=== PATIENT | female | born 1980 | race African-American/Black ===

== ENCOUNTER 2016-08-15 | Emergency (ER) | payer MEDICARE, MEDICAID ==
[~2016-08-15] VITALS: Ht 167.6 cm; Wt 108.9 kg
[~2016-08-15] MED LIST: ALBUTEROL SULF8.5 GM INH; AMLODIPINE BESYL5 MG ORAL; CYCLOBENZAPRINE10 MG ORAL; IBUPROFEN600 MG ORAL; IMITREX50 MG ORAL; PREDNISONE20 MG ORAL; RANITIDINE HCL150 MG ORAL; XANAX0.5 MG ORAL
[2016-08-15] MEDS ORDERED: HYDROmorphone 1mg/ml Carpuject IVP ONE (00:30)
[2016-08-15] MEDS ORDERED: Ketorolac 30mg Inj IV ONE (00:30)
[2016-08-15 00:48] LABS: APPEARANCE,URINE CLEAR; KETONES,URINE NEGATIVE (NEGATIVE); LEUKOCYTE ESTERASE ,URINE 1+ (NEGATIVE); NITRITE,URINE NEGATIVE (NEGATIVE); PH,URINE 5 (4.5-8.0); PROTEIN,URINE 1+ (NEGATIVE); UROBILINOGEN,URINE NORMAL MG/DL (0.0-1.0)
[2016-08-15 01:02] LABS: BACTERIA,URINE FEW /HPF; SQUAMOUS EPITHELIAL CELL,UR MANY /LPF (NONE/OCC); WBC,URINE 0-2 /HPF (0 - 2)
[2016-08-15 01:03] LABS: MUCUS,URINE MODERATE /LPF (NONE/OCC)
[2016-08-15 01:30] VITALS: BP 117/82
[2016-08-15] MEDS ORDERED: IBUPROFEN600 MG ORAL (01:53)
[2016-08-15] MEDS ORDERED: HYDROCODON-ACE1 EA15 ORAL (01:53)
--- NOTE | 2016-08-15 01:53 | Emergency Room Report ---
History of Present Illness General Chief Complaint: Back Pain-No Injury Source: Patient Present Illness HPI Is a 36-year-old female with history of migraine. She present with chief complaint of back pain. Onset for the last couple days. Described it worse he looked left lower. Sharp and throbbing in nature. Worse the last couple hours. Been taking [id number] medicine for it. Never had this problem before. No urinary complaint. No anesthesia. No incontinence of bowel or urine. Pain is 10 out of 10. She works as a freight trucker. Sometime when she stood back up to fruit or nut picker her load it can be jarring in nature. Allergies: Coded Allergies: No Known Allergies (Unverified , 03/08/13) Patient History Past Medical History: see triage record, old chart reviewed Past Surgical History: other Pertinent Family History: none Social History: Denies: smoking Last Menstrual Period: August 02, 2016 Now: No Immunizations: other Reviewed Nursing Documentation: PMH: Agreed, PSxH: Agreed Nursing Documentation-PMH Hx Hypertension: Yes Hx Asthma: Yes Hx Cancer: No Hx Gastrointestinal Problems: No Hx Neurological Problems: No Review of Systems Eye: Denies: blurred vision, eye pain ENT: Denies: ear pain, nose congestion, throat swelling Respiratory: Denies: cough, shortness of breath Cardiovascular: Denies: chest pain, palpitations Gastrointestinal: Denies: abdominal pain, diarrhea, nausea, vomiting Musculoskeletal: Reports: back pain, Denies: joint pain Skin: Denies: rash Neurological: Denies: headache, numbness Endocrine: Denies: increased thirst, increased urine Hematologic/Lymphatic: Denies: easy bruising All Other Systems: negative except mentioned in HPI Physical Exam Vital Signs Date Time Temp Pulse Resp B/P Pulse Ox O2 Delivery O2 Flow Rate FiO2 08/15/16 00:05 97.9 76 16 130/88 98 Room Air vitals normal Sp02 EP Interpretation: reviewed, normal General Appearance: well appearing, no apparent distress, alert Head: normocephalic, atraumatic Eyes: bilateral eye EOMI, bilateral eye PERRL ENT: hearing grossly normal, normal pharynx Neck: full range of motion, supple, no meningismus Respiratory: chest non-tender, lungs clear, normal breath sounds Cardiovascular #1: regular rate, rhythm, no murmur Gastrointestinal: normal bowel sounds, non tender, no mass, no organomegaly, no bruit, non-distended Musculoskeletal: gait/station normal, normal range of motion, tender - Tender to palpation over the left lower back. No anesthesia. No step-off. Psychiatric: mood/affect normal Skin: warm/dry Medical Decision Making Diagnostic Impression: Primary Impression: Back pain Qualified Codes: M54.5 - Low back pain Additional Impression: Degenerative disc disease, lumbar ER Course She presents with back pain. No evidence of cauda equina syndrome, spinal after abscess, or neoplastic process. We'll discharge home. CT/MRI/US Diagnostic Results CT/MRI/US Diagnostic Results : Imaging Test Ordered: CT Lumbar spine Impression read by radiologist. Degenerative changes. Last Vital Signs Date Time Temp Pulse Resp B/P Pulse Ox O2 Delivery O2 Flow Rate FiO2 08/15/16 01:33 97.8 08/15/16 01:30 66 12 117/82 98 Room Air Status: improved Disposition: HOME, SELF-CARE Condition: Stable Scripts Ibuprofen* (MOTRIN*) 600 Mg Tablet 600 MG ORAL THREE TIMES A DAY, #30 TAB 0 Refills Prov: REFUGIO STEIN M.D. 08/15/16 Hydrocodone/Acetaminophen 5-325* (HYDROCODONE/ACETAMINOPHEN 5-325*) 1 Each Tablet 1 TAB ORAL Q6H Y for For Pain, #30 TAB 0 Refills Prov: REFUGIO STEIN M.D. 08/15/16 Referrals: NOT CHOSEN [facility]/,REFERRING (PCP) Patient Instructions: Back Pain, Adult Additional Instructions: Followup with your Dr. in 7 days. No heavy lifting. Return if symptom worsen. REFUGIO STEIN M.D. Aug 15, 2016 01:53
[2016-08-15 02:02] VITALS: BP 139/84
--- NOTE | 2016-08-17 09:07 | Diagnostic Imaging Report ---
Indication: BK PAIN Technique: CT scan of the lumbar spine performed without intravenous contrast material. Axial, coronal comment sagittal images were generated. Dose: Total Dose Length Product - DLP [address] Dose Index - CTDIvol(s) 47.08 mGy. Findings: L5-S1: The disc is normal. There is some narrowing of the neural foramina bilaterally with some loss of perineural fat.. The facets are normal. The spinal canal is normal in width. The nerve roots are symmetric. L4-L5: The disc is normal. The neural foramina are unremarkable. Some mild spurring on the right facet joint.. The spinal canal is normal in width. The nerve roots are symmetric. L3-L4: The disc is normal. The neural foramina are unremarkable. The facets are normal. The spinal canal is normal in width. The nerve roots are symmetric. L2-L3: The disc is normal. The neural foramina are unremarkable. The facets are normal. The spinal canal is normal in width. The nerve roots are symmetric. L1-L2: The disc is normal. The neural foramina are unremarkable. The facets are normal. The spinal canal is normal in width. The nerve roots are symmetric. Impression: Mild narrowing of the L5-S1 foramina with some loss of perineural fat. Mild degenerative change in the right facet joint at L4-5. Otherwise negative. The above report is concordant with preliminary reading by [facility] . The CT scanner at [facility] is accredited by the [employer] and the scans are performed using protocols designed to limit radiation exposure to as low as reasonably achievable to attain images of sufficient resolution adequate for diagnostic evaluation.
== END 2016-08-15 02:05 | disposition home or self-care (01) ==
LOC: EMR 00:43
DX: M51.36 Other intervertebral disc degeneration, lumbar region (principal); M54.5 Low back pain; I10 Essential (primary) hypertension; J45.909 Unspecified asthma, uncomplicated
CPT/HCPCS: 72131; 81003; 81025; 96374; 96375; 99284; J1170; J1885; J2405

== ENCOUNTER 2016-12-26 07:25 | Emergency (ER) | payer OTHER ==
[~2016-12-26] VITALS: Ht 170.2 cm; Wt 111.6 kg
[~2016-12-26 07:25] MED LIST changes: +HYDROCODON-ACE1 EA15 ORAL
[2016-12-26 07:30] VITALS: BP 131/89
[2016-12-26] MEDS ORDERED: IMITREX50 MG ORAL (08:02)
[2016-12-26] MEDS ORDERED: BENADRYL25 M3 PO (08:57)
[2016-12-26] MEDS ORDERED: REGLAN10 MG ORAL (08:57)
--- NOTE | 2016-12-26 08:59 | Emergency Room Report ---
History of Present Illness General Chief Complaint: Headache Source: Patient Present Illness HPI [id number] with migraine headache for 2 days. Left side, pulsatile, associated with nausea, 8/10, feels like typical migraine, worse with light. Took ibuprofen and imitrex without much improvement Denies fever/chills, neck pain/stiffness, sick contacts Allergies: Coded Allergies: No Known Allergies (Unverified , 03/08/13) Patient History Past Medical History: migraines Past Surgical History: none Pertinent Family History: none Social History: Denies: smoking, alcohol use, drug use Last Menstrual Period: 12/20/16 Now: No Immunizations: UTD Reviewed Nursing Documentation: PMH: Agreed, PSxH: Agreed Nursing Documentation-PMH Hx Hypertension: Yes Hx Asthma: Yes Hx Cancer: No Hx Gastrointestinal Problems: No Hx Neurological Problems: No Review of Systems All Other Systems: negative except mentioned in HPI Physical Exam Vital Signs Date Time Temp Pulse Resp B/P (MAP) Pulse Ox O2 Delivery O2 Flow Rate FiO2 12/26/16 07:30 97.5 79 15 131/89 98 Room Air Sp02 EP Interpretation: reviewed, normal General Appearance: normal inspection, well appearing, no apparent distress, alert, GCS 15, non-toxic Head: normocephalic, atraumatic Eyes: bilateral eye PERRL, bilateral eye EOMI ENT: normal ENT inspection, hearing grossly normal, normal voice Neck: normal inspection, full range of motion, supple, thyroid normal, no meningismus, no bony tend Respiratory: normal inspection, lungs clear, normal breath sounds, no respiratory distress, no retraction, no wheezing Cardiovascular #1: regular rate, rhythm, no edema Gastrointestinal: normal inspection, normal bowel sounds, non tender, soft, no guarding, no hernia Genitourinary: no CVA tenderness Musculoskeletal: normal inspection, back normal, normal range of motion, Genie' s Sign negative Neurologic: normal inspection, alert, oriented x3, responsive, music worker III-XII nml as tested, motor strength/tone normal, speech normal Psychiatric: normal inspection, judgement/insight normal, mood/affect normal Skin: normal inspection, normal color, no rash Medical Decision Making Diagnostic Impression: Primary Impression: Headache Qualified Codes: R51 - Headache Additional Impression: Migraine headache Qualified Codes: G43.009 - Migraine without aura, not intractable, without status migrainosus ER Course VSS. Afebrile. No focal neuro deficits No meningismus Improved with IV reglan/benadryl, IVF Low suspicion for meningitis, SAH given 2 days duration, no neuro deficits, not intractable, no fever/chills, no meningismus Rx Reglan/benadryl F/up with PMD/neurologist for referral Last Vital Signs Date Time Temp Pulse Resp B/P (MAP) Pulse Ox O2 Delivery O2 Flow Rate FiO2 12/26/16 07:30 97.5 79 15 131/89 98 Room Air Status: improved Disposition: HOME, SELF-CARE Condition: Improved Scripts Diphenhydramine HCl (Benadryl) 25 Mg Capsule 25 MG PO BID for 7 Days, #14 CAP Prov: DARIA SIDDIQI M.D. 12/26/16 Metoclopramide Hcl* (REGLAN*) 10 Mg Tablet 10 MG ORAL BID for 7 Days, #14 TAB Prov: DARIA SIDDIQI M.D. 12/26/16 Patient Instructions: Migraine Headache Additional Instructions: - You can take benadryl with reglan twice a day for continued migraines - Follow up with your doctor/neurologist if migraines are not responding to imitrex DARIA SIDDIQI M.D. Dec 26, 2016 08:59
[2016-12-26] MEDS ORDERED: DiphenhydrAMINE 50mg/ml Inj IVP ONE (09:00)
[2016-12-26] MEDS ORDERED: Metoclopramide 10mg/2ml Inj IVP ONE (09:00)
[2016-12-26] MEDS ORDERED: oxyCODONE HCL/Acetaminophen 5/325mg ORAL ONE (09:00)
[2016-12-26 09:36] VITALS: BP 144/85
[2016-12-26 09:55] VITALS: BP 144/85
== END 2016-12-26 09:55 | disposition home or self-care (01) ==
LOC: EMR 08:58
DX: G43.909 Migraine, unspecified, not intractable, without status migrainosus (principal); I10 Essential (primary) hypertension; J45.909 Unspecified asthma, uncomplicated
CPT/HCPCS: 96361; 96374; 96375; 99284; J1200; J2765

== ENCOUNTER 2017-04-08 18:51 | Emergency (ER) | payer OTHER ==
[~2017-04-08] VITALS: Ht 167.6 cm; Wt 108.9 kg
[~2017-04-08 18:51] MED LIST changes: +BENADRYL25 M3 PO; +REGLAN10 MG ORAL
[2017-04-08 19:41] LABS: APPEARANCE,URINE CLEAR; KETONES,URINE NEGATIVE (NEGATIVE); LEUKOCYTE ESTERASE ,URINE NEGATIVE (NEGATIVE); NITRITE,URINE NEGATIVE (NEGATIVE); PH,URINE 5 (4.5-8.0); PROTEIN,URINE 1+ (NEGATIVE); UROBILINOGEN,URINE 1 MG/DL (0.0-1.0)
[2017-04-08 19:49] LABS: BACTERIA,URINE OCCASIONAL /HPF; RBC,URINE 0-2 /HPF (0 - 2); SQUAMOUS EPITHELIAL CELL,UR FEW /LPF (NONE/OCC); WBC,URINE 0-2 /HPF (0 - 2)
[2017-04-08] MEDS ORDERED: Morphine Sulfate 4mg/ml Inj IM ONE (20:00)
[2017-04-08 20:04] VITALS: BP 116/76
[2017-04-08] MEDS ORDERED: NORCO 5-325 TA1 EAC1 ORAL (20:26)
[2017-04-08 20:54] VITALS: BP 120/78
--- NOTE | 2017-04-08 22:01 | Emergency Room Report ---
History of Present Illness General Chief Complaint: Back Pain-No Injury Source: Patient Present Illness [facility] The patient is a 36-year-old female presenting for back pain which began today. Pain is a 10 out of 10 sharp sensation to the left lower back. Worse with movement such as twisting and bending. She denies any known injury to the area. She states that it feels like a spasm. She states that she has had back spasms before and this feels the same. She has used Motrin at home which has not been helping. She denies any other symptoms including nausea, vomiting, fever, chills, abdominal pain, urinary incontinence, dysuria Allergies: Coded Allergies: No Known Allergies (Unverified , 03/08/13) Patient History Past Medical History: see triage record Pertinent Family History: none Last Menstrual Period: 04/07/17 Now: No : 2 Para: 2 Reviewed Nursing Documentation: PMH: Agreed, PSxH: Agreed Nursing Documentation-PMH Hx Hypertension: Yes Hx Asthma: Yes Hx Cancer: No Hx Gastrointestinal Problems: No Hx Neurological Problems: No Review of Systems All Other Systems: negative except mentioned in HPI Physical Exam Vital Signs Date Time Temp Pulse Resp B/P (MAP) Pulse Ox O2 Delivery O2 Flow Rate FiO2 04/08/17 18:55 97.5 78 14 116/76 99 Room Air Sp02 EP Interpretation: reviewed, normal General Appearance: no apparent distress, alert, GCS 15, non-toxic Head: normocephalic, atraumatic Eyes: bilateral eye normal inspection, bilateral eye PERRL ENT: hearing grossly normal, normal pharynx, no angioedema, normal voice Neck: full range of motion, supple/symm/no masses Respiratory: chest non-tender, lungs clear, normal breath sounds, speaking full sentences Gastrointestinal: normal bowel sounds, non tender, soft, non-distended, no guarding, no rebound Genitourinary: normal inspection, no CVA tenderness Musculoskeletal: back normal, gait/station normal, normal range of motion, non- tender, tender - L Lumbar paraspinal muscles Neurologic: alert, oriented x3, responsive, motor strength/tone normal, sensory intact, speech normal Psychiatric: judgement/insight normal, memory normal, mood/affect normal, no suicidal/homicidal ideation Skin: normal color, no rash, warm/dry, well hydrated Medical Decision Making PA Attestation Dr. Ennis is my supervising physician. Patient management was discussed with my supervising physician Diagnostic Impression: Primary Impression: Back pain Qualified Codes: M54.5 - Low back pain ER Course The patient is a 36-year-old female presenting for back pain which began today Ddx considered include but not limited to lumbar strain, muscle spasm, degenerative disease, epidural abscess, cauda equina, chronic pain, narcotic dependency. PE: Vitals WNL. NAD Abdomen is soft and nontender Lungs are clear to auscultation bilaterally There is tenderness to palpation over the left lumbar paraspinal muscles. Normal gait Urinalysis is unremarkable The patient is given IM morphine and is feeling better. She appears more relaxed and range of motion has increased. She will be discharged home with pain medication and will follow up with primary doctor. ER precautions given Laboratory Tests Test 04/08/17 17:04 Urine Color Yellow Urine Appearance Clear Urine pH 5 (4.5-8.0) Urine Specific [place] 1.020 (1.005-1.035) Urine Protein 1+ (NEGATIVE) H Urine Glucose (UA) Negative (NEGATIVE) Urine Ketones Negative (NEGATIVE) Urine Occult Blood 3+ (NEGATIVE) H Urine Nitrite Negative (NEGATIVE) Urine Bilirubin Negative (NEGATIVE) Urine Urobilinogen 1 MG/DL (0.0-1.0) H Urine Leukocyte Esterase Negative (NEGATIVE) Urine RBC 0-2 /HPF (0 - 2) Urine WBC 0-2 /HPF (0 - 2) Urine Squamous Epithelial Cells Few /LPF (NONE/OCC) Urine Bacteria Occasional /HPF (NONE) Urine HCG, Qualitative Negative Lab Results Impression unremarkable Last Vital Signs Date Time Temp Pulse Resp B/P (MAP) Pulse Ox O2 Delivery O2 Flow Rate FiO2 04/08/17 20:54 97.5 72 16 120/78 99 Room Air Status: improved Disposition: HOME, SELF-CARE Condition: Improved Scripts Hydrocodone Bit/Acetaminophen 5-325* (NORCO 5-325 TABLET*) 1 Each Tablet 1 TAB ORAL Q6HR Y for For Pain, #10 TAB Prov: RICHAR GARCIA 04/08/17 Patient Instructions: Back Pain, Adult Additional Instructions: I discussed my findings with the patient. All questions and concerns have been answered. Treatment and medication compliance have been addressed. I advised the patient that they need to follow up with PMD in 3-5 days. Return to ED if symptoms worsen, new symptoms arise, or if needed for any reason. Patient verbalized understanding of discharge instructions. RICHAR GARCIA Apr 08, 2017 22:01
== END 2017-04-08 21:06 | disposition home or self-care (01) ==
LOC: EMR 19:10
DX: M54.5 Low back pain (principal); I10 Essential (primary) hypertension; J45.909 Unspecified asthma, uncomplicated
CPT/HCPCS: 81003; 81025; 96372; 99283; J2270

== ENCOUNTER 2017-04-17 02:42 | Emergency (ER) | payer OTHER ==
[~2017-04-17] VITALS: Ht 167.6 cm; Wt 108.9 kg
[~2017-04-17 02:42] MED LIST changes: +NORCO 5-325 TA1 EAC1 ORAL
[2017-04-17] MEDS ORDERED: Ketorolac 30mg Inj IV ONE (03:15)
[2017-04-17] MEDS ORDERED: Aspirin Baby 81mg ORAL ONE (03:15)
--- NOTE | 2017-04-17 03:15 | Emergency Room Report ---
History of Present Illness General Chief Complaint: Chest Pain Source: Patient Present Illness HPI Is a 36-year-old female with history hypertension. She presents with chief complaint of chest pain. Is left-sided. Onset since 2 PM. Is no pain with sharp and mentally. Pain is 10 out of 10. No radiation. Also with back pain. No fever chills but no exertional component. No diaphoresis. No radiation. Similar pain in the past. Not on control pill. Allergies: Coded Allergies: No Known Allergies (Unverified , 03/08/13) Patient History Past Medical History: see triage record, old chart reviewed, HTN Past Surgical History: other Pertinent Family History: none Social History: Denies: smoking Last Menstrual Period: a week ago Now: No Immunizations: other Reviewed Nursing Documentation: PMH: Agreed, PSxH: Agreed Nursing Documentation-PMH Hx Hypertension: Yes Hx Asthma: Yes Hx Cancer: No Hx Gastrointestinal Problems: No Hx Neurological Problems: No Review of Systems Eye: Denies: eye pain, blurred vision ENT: Denies: ear pain, nose congestion, throat swelling Respiratory: Denies: cough, shortness of breath Cardiovascular: Reports: chest pain, Denies: palpitations Gastrointestinal: Denies: abdominal pain, diarrhea, nausea, vomiting Musculoskeletal: Denies: back pain, joint pain Skin: Denies: rash Neurological: Denies: headache, numbness Endocrine: Denies: increased thirst, increased urine Hematologic/Lymphatic: Denies: easy bruising All Other Systems: negative except mentioned in HPI Physical Exam Vital Signs Date Time Temp Pulse Resp B/P (MAP) Pulse Ox O2 Delivery O2 Flow Rate FiO2 04/17/17 02:47 97.3 77 18 140/83 99 Room Air vitals normal except for mild hypertension Sp02 EP Interpretation: reviewed, normal General Appearance: well appearing, no apparent distress, alert, obese Head: normocephalic, atraumatic Eyes: bilateral eye PERRL, bilateral eye EOMI ENT: hearing grossly normal, normal pharynx Neck: full range of motion, supple, no meningismus Respiratory: chest non-tender, lungs clear, normal breath sounds Cardiovascular #1: regular rate, rhythm, no murmur Gastrointestinal: normal bowel sounds, non tender, no mass, no organomegaly, no bruit, non-distended Musculoskeletal: back normal, gait/station normal, normal range of motion Neurologic: alert, oriented x3 Psychiatric: mood/affect normal Skin: warm/dry Medical Decision Making Diagnostic Impression: Primary Impression: Chest pain Qualified Codes: R07.9 - Chest pain, unspecified ER Course Patient presents with atypical chest pain. Notice of ACS, PE, dissection to name a few. She is better now. We'll discharge home. Troponin negative after 12 hours the pain. EKG normal. EKG Diagnostic Results Rate: normal Rhythm: NSR ST Segments: no acute changes ASA given to the pt in ED: Yes Rhythm Strip Diag. Results Rhythm Strip Time: 03:15 EP Interpretation: yes Rate: 80 Rhythm: NSR, no PVC's, no ectopy Chest X-Ray Diagnostic Results Chest X-Ray Diagnostic Results : Chest X-Ray Ordered: Yes # of Views/Limited/Complete: 1 View Indication: Chest Pain EP Interpretation: Yes Interpretation: no consolidation, no effusion, no pneumothorax, no acute cardiopulmonary disease Impression: No acute disease Electronically Signed by: Iban Ross MD Last Vital Signs Date Time Temp Pulse Resp B/P (MAP) Pulse Ox O2 Delivery O2 Flow Rate FiO2 04/17/17 02:54 77 18 Room Air 04/17/17 02:47 97.3 140/83 99 Status: improved Disposition: HOME, SELF-CARE Condition: Stable Scripts Naproxen* (NAPROSYN*) 500 Mg Tablet 500 MG ORAL TWICE A DAY, #30 TAB Prov: IBAN ROSS M.D. 04/17/17 Patient Instructions: Nonspecific Chest Pain Additional Instructions: Followup with your DrAlondra in 2 to 3 days. Return if worse. IBAN ROSS M.D. Apr 17, 2017 03:15
[2017-04-17 03:29] LABS: APPEARANCE,URINE CLOUDY; BASOPHILS % (AUTO) 1.6 % (0.0-2.0); KETONES,URINE NEGATIVE (NEGATIVE); LEUKOCYTE ESTERASE ,URINE NEGATIVE (NEGATIVE); LYMPHOCYTES % (AUTO) 27.6 % (20.0-45.0); MEAN CORPUSCULAR HGB CONC 32.5 G/DL (32.0-36.0); MEAN CORPUSCULAR VOLUME 96 FL (80-99); MEAN PLATELET VOLUME 7.6 FL (6.5-10.1); MONOCYTES % (AUTO) 7.1 % (1.0-10.0); NEUTROPHILS % (AUTO) 61.7 % (45.0-75.0); NITRITE,URINE NEGATIVE (NEGATIVE); PH,URINE 6 (4.5-8.0); PLATELET COUNT 304 K/UL (150-450); PROTEIN,URINE NEGATIVE (NEGATIVE); RED BLOOD COUNT 4.35 M/UL (4.20-5.40); RED CELL DISTRIBUTION WIDTH 11.9 % (11.6-14.8); UROBILINOGEN,URINE NORMAL MG/DL (0.0-1.0); WHITE BLOOD COUNT 9.1 K/UL (4.8-10.8)
[2017-04-17 03:38] LABS: BACTERIA,URINE FEW /HPF; RBC,URINE 0-2 /HPF (0 - 2); SQUAMOUS EPITHELIAL CELL,UR MODERATE /LPF (NONE/OCC); WBC,URINE 0-2 /HPF (0 - 2)
[2017-04-17 03:40] LABS: ANION GAP 4 mmol/L (5-15); CALCIUM 8.6 MG/DL (8.5-10.1); CARBON DIOXIDE 29 MMOL/L (21-32); CHLORIDE 105 MMOL/L (98-107); CREATININE 0.9 MG/DL (0.55-1.30); GLOMERULAR FILTRATION RATE > 60 mL/min (>60); POTASSIUM 4.4 MMOL/L (3.5-5.1); SODIUM 138 MMOL/L (136-145)
[2017-04-17 03:54] LABS: ALANINE AMINOTRANSFERASE 19 U/L (12-78); ALBUMIN/GLOBULIN RATIO 0.8 (1.0-2.7); ASPARTATE AMINO TRANSFERASE 19 U/L (15-37); CKMB 2.2 NG/ML (0.0-3.6); TOTAL PROTEIN 7.6 G/DL (6.4-8.2)
[2017-04-17 04:58] VITALS: BP 140/83
[2017-04-17] MEDS ORDERED: NAPROSYN500 M1 ORAL (04:58)
--- NOTE | 2017-04-17 12:09 | Diagnostic Imaging Report ---
Indication: Pain Technique: XRAY Chest 1v Comparison: 06/22/2014 Findings: Stable cardiomegaly. Sternal contours are sharp. There is no focal consolidation, pneumothorax or pleural effusion. Osseous structures demonstrate no acute abnormality. Impression: Stable cardiomegaly. No radiographic evidence of acute cardiopulmonary disease.
--- NOTE | 2017-04-18 14:28 | Cardiology Report ---
APPROVED REPORT EKG Measurement Heart [id number] Normal sinus rhythm Possible Left atrial enlargement Borderline ECG
== END 2017-04-17 05:04 | disposition home or self-care (01) ==
LOC: EMR 03:20
DX: R07.9 Chest pain, unspecified (principal); I10 Essential (primary) hypertension; J45.909 Unspecified asthma, uncomplicated
CPT/HCPCS: 36415; 71010; 80053; 80307; 81003; 82550; 82553; 84484; 85025; 93005; 96374; 99284; J1885

== ENCOUNTER 2017-06-04 14:45 | Emergency (ER) | payer OTHER ==
[~2017-06-04] VITALS: Ht 170.2 cm; Wt 108.9 kg
[~2017-06-04 14:45] MED LIST changes: +NAPROSYN500 M1 ORAL
[2017-06-04] MEDS ORDERED: DIOVAN80 MG ORAL (15:00)
--- NOTE | 2017-06-04 15:22 | Emergency Room Report ---
History of Present Illness General Chief Complaint: Skin Rash/Abscess Source: Patient Present Illness HPI 36 yo female presents to ER complaining of herpes rash outbreak on mouth, throat , lower back and vaginal area x3 days. 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 Patient reports pain and pruritis at sites of outbreak. Patient report using OTC treatments for mouth outbreak; states it is "dried out ". 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 Patient reports recent sexual contact 2 weeks ago. Patient reports using contraceptive methods during sex. Patient denies fever, chest pain, SOB. Allergies: Coded Allergies: No Known Allergies (Unverified , 03/08/13) Patient History Past Medical History: see triage record Now: No Immunizations: UTD Reviewed Nursing Documentation: PMH: Agreed, PSxH: Agreed Nursing Documentation-PMH Past Medical History: No History, Except For Hx Hypertension: Yes Hx Asthma: Yes Hx Cancer: No Hx Gastrointestinal Problems: No Hx Neurological Problems: No Review of Systems All Other Systems: negative except mentioned in HPI Physical Exam Vital Signs Date Time Temp Pulse Resp B/P (MAP) Pulse Ox O2 Delivery O2 Flow Rate FiO2 06/04/17 14:53 97.5 74 18 138/87 96 Room Air Sp02 EP Interpretation: reviewed, normal General Appearance: no apparent distress, alert, GCS 15, non-toxic Head: normocephalic, atraumatic Eyes: bilateral eye normal inspection, bilateral eye PERRL ENT: hearing grossly normal, normal pharynx, no angioedema, normal voice, other - left tonsil: 2-3mm ulcer with surrounding erythema Neck: full range of motion, supple/symm/no masses Respiratory: chest non-tender, lungs clear, normal breath sounds, speaking full sentences Cardiovascular #1: regular rate, rhythm, no edema Genitourinary: ext genitalia/vag normal, other - left external vagina: <1cm red elevated lesion, no blanching with pressure, no TTP, no active bleeding, no edmea, no surrounding cellulitis Musculoskeletal: back normal, gait/station normal, normal range of motion, non- tender, calf tenderness Neurologic: alert, oriented x3, responsive, motor strength/tone normal, sensory intact, speech normal Psychiatric: mood/affect normal Skin: no rash, warm/dry, palpation normal, well hydrated, other - right corner of mouth: 2cm lesion, dried pus, no active draining, no bleeding, no vesicles, no blisters; left ear auricle: mild erythema, no edema, no TTP, no active bleeding; lumbar spine: no rash, no erythema, no edema, no excoriations, no open wounds, no ecchymosis Lymphatic: no adenopathy Medical Decision Making PA Attestation Dr. Nino is my supervising Physician whom patient management has been discussed with. Diagnostic Impression: Primary Impression: Herpes ER Course Pt. presents to the ED c/o STI. Ddx considered but are not limited to syphillis, HSV1, HSV2, ezcema Vital signs: are WNL, pt. is afebrile ORDERS: none required at this time, diagnosis is clinical ED INTERVENTIONS: Penicillin G IM Hydroxyzine Viscous Lidocaine ER COURSE Discuss treatment plan with patient. Inform patient that genital lesion possibly could be syphilis, will treat prophylactically. Patient will require further followup with PCP. Patient reports understanding and agreement to treatment plan. Provide patient Rx for Acyclovir Advised to use safe sex practices including but not limited to use of condoms. Instructed patient to follow up with STI clinic and/or PCP for future STI treatment and prevention. Instructed patient to inform partner of need for treatment to prevent future infection. At this time pt. is stable for d/c to home. Will provide printed patient care instructions, and any necessary prescriptions. Care plan and follow up instructions have been discussed with the patient prior to discharge Last Vital Signs Date Time Temp Pulse Resp B/P (MAP) Pulse Ox O2 Delivery O2 Flow Rate FiO2 06/04/17 14:53 97.5 74 18 138/87 96 Room Air Disposition: HOME, SELF-CARE Condition: Stable Scripts Acyclovir* (ACYCLOVIR*) 400 Mg Tablet 400 MG ORAL FIVE TIMES A DAY for 10 Days, #50 TAB Prov: Paco Diaz 06/04/17 Patient Instructions: Genital Herpes Additional Instructions: Followup with primary care provider in 3 -5 days. Take medications as directed. Patient questions asked and answered. ER precautions given, patient instructed to return to ER immediately for any new or worsening of symptoms. Paco Diaz Jun 04, 2017 15:22
[2017-06-04] MEDS ORDERED: Lidocaine 2% Visc 15ml soln ORAL ONE (15:30)
[2017-06-04] MEDS ORDERED: HydrOXYzine tab 25 MG TAB ORAL ONE (15:30)
[2017-06-04] MEDS ORDERED: ACYCLOVIR400 MG ORAL (15:39)
[2017-06-04 15:45] VITALS: BP 138/87
[2017-06-04] MEDS ORDERED: Bicillin LA 2,400,000 units IM ONE (15:45)
[2017-06-04 15:46] VITALS: BP 138/87
== END 2017-06-04 15:46 | disposition home or self-care (01) ==
LOC: EMR 15:28
DX: B00.9 Herpesviral infection, unspecified (principal); I10 Essential (primary) hypertension; J45.909 Unspecified asthma, uncomplicated
CPT/HCPCS: 96372; 99283

== ENCOUNTER 2017-08-13 04:46 | Emergency (ER) | payer OTHER ==
[~2017-08-13] VITALS: Ht 170.2 cm; Wt 108.9 kg
[~2017-08-13 04:46] MED LIST changes: +ACYCLOVIR400 MG ORAL; +DIOVAN80 MG ORAL
[2017-08-13 05:56] LABS: BASOPHILS % (AUTO) 1.5 % (0.0-2.0); EOSINOPHILS % (AUTO) 3.2 % (0.0-3.0); HEMATOCRIT 40.9 % (37.0-47.0); HEMOGLOBIN 13.5 G/DL (12.0-16.0); LYMPHOCYTES % (AUTO) 23.9 % (20.0-45.0); MEAN CORPUSCULAR VOLUME 93 FL (80-99); MONOCYTES % (AUTO) 5.2 % (1.0-10.0); NEUTROPHILS % (AUTO) 66.2 % (45.0-75.0); PLATELET COUNT 279 K/UL (150-450); RED BLOOD COUNT 4.39 M/UL (4.20-5.40); RED CELL DISTRIBUTION WIDTH 11.6 % (11.6-14.8); WHITE BLOOD COUNT 7.4 K/UL (4.8-10.8)
[2017-08-13 06:03] LABS: APPEARANCE,URINE CLEAR; BILIRUBIN, URINE NEGATIVE (NEGATIVE); COLOR,URINE PALE YELLOW; GLUCOSE, URINE (UA) NEGATIVE (NEGATIVE); KETONES,URINE NEGATIVE (NEGATIVE); LEUKOCYTE ESTERASE ,URINE NEGATIVE (NEGATIVE); NITRITE,URINE NEGATIVE (NEGATIVE); PH,URINE 6.5 (4.5-8.0); PROTEIN,URINE NEGATIVE (NEGATIVE); UROBILINOGEN,URINE NORMAL MG/DL (0.0-1.0)
[2017-08-13 06:09] LABS: ANION GAP 5 mmol/L (5-15); BLOOD UREA NITROGEN 11 mg/dL (7-18); CALCIUM 8.5 MG/DL (8.5-10.1); CARBON DIOXIDE 31 MMOL/L (21-32); CHLORIDE 104 MMOL/L (98-107); CREATININE 0.9 MG/DL (0.55-1.30); POTASSIUM 3.8 MMOL/L (3.5-5.1); SODIUM 140 MMOL/L (136-145)
[2017-08-13 06:22] LABS: ALANINE AMINOTRANSFERASE 22 U/L (12-78); ALBUMIN 3.4 G/DL (3.4-5.0); ALBUMIN/GLOBULIN RATIO 0.8 (1.0-2.7); ALKALINE PHOSPHATASE 88 U/L (46-116); ASPARTATE AMINO TRANSFERASE 22 U/L (15-37); BILIRUBIN,TOTAL 0.3 MG/DL (0.2-1.0); CREATINE KINASE 381 U/L (26-308)
--- NOTE | 2017-08-13 06:53 | Emergency Room Report ---
History of Present Illness General Chief Complaint: Pain Source: Patient (Horacio Goddard MD) Present Illness HPI 37-year-old female presents ED for evaluation. States that since yesterday at 11 AM she's been experiencing numbness to the left side of her face and facial droop. Occurred while at work. Was referred to employee health. States that they recommend that she follow-up with PMD because it is not work-related. However they did voice concern for Yt's palsy. Patient was told that she needed clearance before she go back to work today. Still has some numbness on the left side of face. Denies any arm or leg weakness. Notes history of hypertension. States she is compliant with her meds. Denies chest pain or shortness of breath. No other aggravating relieving factors. Denies any other associated symptoms (Horacio Goddard MD) Allergies: Coded Allergies: No Known Allergies (Unverified , 03/08/13) Patient History Past Medical History: HTN, asthma, psych hx Past Surgical History: none Pertinent Family History: none Social History: Denies: smoking, alcohol use, drug use Last Menstrual Period: 08/04/17 Now: No : 2 Para: 2 Immunizations: UTD Reviewed Nursing Documentation: PMH: Agreed; PSxH: Agreed (Horacio Goddard MD) Nursing Documentation-PMH Hx Hypertension: Yes Hx Asthma: Yes Hx Cancer: No Hx Gastrointestinal Problems: No History Of Psychiatric Problem: Yes - anxiety Hx Neurological Problems: No (Horacio Goddard MD) Review of Systems All Other Systems: negative except mentioned in HPI (Horacio Goddard MD) Physical Exam Vital Signs Date Time Temp Pulse Resp B/P (MAP) Pulse Ox O2 Delivery O2 Flow Rate FiO2 08/13/17 04:48 97.5 87 14 147/78 96 Room Air 97.5 Sp02 EP Interpretation: reviewed, normal General Appearance: no apparent distress, alert, GCS 15, non-toxic Head: normocephalic, atraumatic Eyes: bilateral eye normal inspection, bilateral eye PERRL ENT: hearing grossly normal, normal pharynx, no angioedema, normal voice Neck: full range of motion, supple/symm/no masses Respiratory: chest non-tender, lungs clear, normal breath sounds, speaking full sentences Cardiovascular #1: regular rate, rhythm, no edema Cardiovascular #2: 2+ carotid (R), 2+ carotid (L), 2+ radial (R), 2+ radial (L) , 2+ dorsalis pedis (R), 2+ dorsalis pedis (L) Gastrointestinal: normal bowel sounds, non tender, soft, non-distended, no guarding, no rebound Rectal: deferred Genitourinary: normal inspection, no CVA tenderness Musculoskeletal: back normal, gait/station normal, normal range of motion, non- tender Neurologic: alert, oriented x3, responsive, motor strength/tone normal, speech normal, facial droop - minimal on left, sensory deficit - L side of face Psychiatric: judgement/insight normal, memory normal, mood/affect normal, no suicidal/homicidal ideation Reflexes: 3+ bicep (R), 3+ bicep (L), 3+ tricep (R), 3+ tricep (L), 3+ knee (R) , 3+ knee (L) Skin: normal color, no rash, warm/dry, well hydrated Lymphatic: no adenopathy (Horacio Goddard MD) Sp02 EP Interpretation: reviewed, normal General Appearance: well appearing, no apparent distress Head: normocephalic, atraumatic Eyes: bilateral eye PERRL, bilateral eye EOMI ENT: hearing grossly normal, normal pharynx, TMs + canals normal, uvula midline Neck: full range of motion, supple, no meningismus, no bony tend Respiratory: lungs clear, normal breath sounds, no rhonchi, no respiratory distress, no retraction, no accessory muscle use Cardiovascular #1: normal peripheral pulses, regular rate, rhythm, no edema, no gallop, no JVD, no murmur Gastrointestinal: normal bowel sounds, non tender, soft, no mass, no organomegaly, non-distended, no guarding, no hernia, no pulsatile mass, no rebound Genitourinary: no CVA tenderness Musculoskeletal: normal inspection Neurologic: oriented x3, responsive, assistant production manager III-XII nml as tested - No evidence of facial droop, sensory is intact, motor strength/tone normal, sensory intact Psychiatric: mood/affect normal Skin: normal color, no rash, warm/dry, palpation normal Lymphatic: other - Small palpable submental lymph node left submandibular region approximately 1 x 1 cm nontender (Ashley Ochoa DO) Medical Decision Making Diagnostic Impression: Primary Impression: Lymphadenopathy Labs Test 08/13/17 05:50 White Blood Count 7.4 K/UL (4.8-10.8) Red Blood Count 4.39 M/UL (4.20-5.40) Hemoglobin 13.5 G/DL (12.0-16.0) Hematocrit 40.9 % (37.0-47.0) Mean Corpuscular Volume 93 FL (80-99) Mean Corpuscular Hemoglobin 30.8 PG (27.0-31.0) Mean Corpuscular Hemoglobin Concent 33.0 G/DL (32.0-36.0) Red Cell Distribution Width 11.6 % (11.6-14.8) Platelet Count 279 K/UL (150-450) Mean Platelet Volume 7.3 FL (6.5-10.1) Neutrophils (%) (Auto) 66.2 % (45.0-75.0) Lymphocytes (%) (Auto) 23.9 % (20.0-45.0) Monocytes (%) (Auto) 5.2 % (1.0-10.0) Eosinophils (%) (Auto) 3.2 % (0.0-3.0) Basophils (%) (Auto) 1.5 % (0.0-2.0) Urine Color Pale yellow Urine Appearance Clear Urine pH 6.5 (4.5-8.0) Urine Specific [place] 1.015 (1.005-1.035) Urine Protein Negative (NEGATIVE) Urine Glucose (UA) Negative (NEGATIVE) Urine Ketones Negative (NEGATIVE) Urine Occult Blood 3+ (NEGATIVE) Urine Nitrite Negative (NEGATIVE) Urine Bilirubin Negative (NEGATIVE) Urine Urobilinogen Normal MG/DL (0.0-1.0) Urine Leukocyte Esterase Negative (NEGATIVE) Urine RBC 5-10 /HPF (0 - 2) Urine WBC 0-2 /HPF (0 - 2) Urine Squamous Epithelial Cells Moderate /LPF (NONE/OCC) Urine Bacteria Few /HPF (NONE) Urine HCG, Qualitative Negative (NEGATIVE) Sodium Level 140 MMOL/L (136-145) Potassium Level 3.8 MMOL/L (3.5-5.1) Chloride Level 104 MMOL/L (98-107) Carbon Dioxide Level 31 MMOL/L (21-32) Anion Gap 5 mmol/L (5-15) Blood Urea Nitrogen 11 mg/dL (7-18) Creatinine 0.9 MG/DL (0.55-1.30) Estimat Glomerular Filtration Rate > 60 mL/min (>60) Glucose Level 73 MG/DL (74-106) Calcium Level 8.5 MG/DL (8.5-10.1) Total Bilirubin 0.3 MG/DL (0.2-1.0) Aspartate Amino Transf (AST/SGOT) 22 U/L (15-37) Alanine Aminotransferase (ALT/SGPT) 22 U/L (12-78) Alkaline Phosphatase 88 U/L (46-116) Total Creatine Kinase 381 U/L (26-308) Creatine Kinase MB 2.0 NG/ML (0.0-3.6) Creatine Kinase MB Relative Index 0.5 Troponin I 0.013 ng/mL (0.000-0.056) Total Protein 7.5 G/DL (6.4-8.2) Albumin 3.4 G/DL (3.4-5.0) Globulin 4.1 g/dL Albumin/Globulin Ratio 0.8 (1.0-2.7) (Horacio Goddard MD) ER Course Given the patient's presentation blood work was obtained which was negative CT head was also negative initially there was thought of moving forward with MRI On repeat evaluation patient has no signs of any neurological deficit she has equal movement of her facial muscles, no facial droop is appreciated Sensory is also intact Patient describes the left lower facial discomfort as a clenching and tightening sensation, which appears to have resolved there was a small lymph node palpable in the left submental region where the patient reports feeling some swollen area previously She has no dental pain in the left ear is also clear Mastoid is nontender without any bogginess Patient's blood pressure at bedside is 146 systolic, heart rate is in the mid 70s hemodynamically stable And patient at this time is medically cleared and stable for close follow-up with primary physician, (Ashley Ochoa DO) EKG Diagnostic Results Rate: normal Rhythm: NSR ST Segments: no acute changes ASA given to the pt in ED: No (Horacio Goddard MD) Rhythm Strip Diag. Results EP Interpretation: yes Rhythm: NSR, no PVC's, no ectopy (Horacio Goddard MD) Chest X-Ray Diagnostic Results Chest X-Ray Diagnostic Results : Chest X-Ray Ordered: Yes # of Views/Limited/Complete: 1 View Indication: Other - weakness EP Interpretation: Yes Interpretation: no consolidation, no effusion, no pneumothorax, no acute cardiopulmonary disease Impression: No acute disease Electronically Signed by: Electronically signed by Horacio Goddard MD (Horacio Goddard MD) Last Vital Signs Date Time Temp Pulse Resp B/P (MAP) Pulse Ox O2 Delivery O2 Flow Rate FiO2 08/13/17 04:48 97.5 87 14 147/78 96 Room Air 97.5 (Horacio Goddard MD) Status: improved (Ashley Ochoa DO) Disposition: HOME, SELF-CARE Condition: Improved Referrals: [facility],REFERRING (PCP) Additional Instructions: Patient is provided with the discharge instructions notified to follow up with primary doctor in the next 2-3 days otherwise return to the er with any worsening symptoms. Please note that this report is being documented using [employer] technology. This can lead to erroneous entry secondary to incorrect interpretation by the dictating instrument. Horacio Goddard MD Aug 13, 2017 06:53 Ashley Ochoa DO Aug 13, 2017 08:35
[2017-08-13 07:56] VITALS: BP 146/71
[2017-08-13 08:35] VITALS: BP 150/79
--- NOTE | 2017-08-13 10:41 | Diagnostic Imaging Report ---
Indication: Chest pain Technique: One view of the chest Comparison: 04/17/2017 Findings: The heart is enlarged. Lungs and pleural spaces are clear. There is no significant interim change Impression: Acute process Cardiomegaly
--- NOTE | 2017-08-13 11:42 | Diagnostic Imaging Report ---
Indication: Slurred speech and facial droop Technique: Continuous helical CT scanning of the head was performed without intravenous contrast material. Axial and coronal 5 mm sections were generated. Radiation dose was minimized using automated exposure control Dose: Total Dose Length Product - DLP 1390.[address] Dose Index - CTDIvol(s) 70.38 mGy. Comparison: none Findings: The ventricular system is normal in size and configuration. There is no shift of midline structures. No abnormal extra-axial fluid collections are noted. There is no evidence of intracerebral bleeding. No other abnormal high or low density areas are noted within the brain. The calvarium is intact. The mastoids are clear. Visualized orbits and sinuses are unremarkable. Impression: Normal CT scan of the head without contrast material. This agrees with the preliminary interpretation provided overnight by [facility] teleradiology service. The CT scanner at [facility] is accredited by the [employer] and the scans are performed using protocols designed to limit radiation exposure to as low as reasonably achievable to attain images of sufficient resolution adequate for diagnostic evaluation.
--- NOTE | 2017-08-13 14:42 | Cardiology Report ---
APPROVED REPORT EKG Measurement Heart [id number] Normal sinus rhythm Right atrial enlargement Borderline ECG
== END 2017-08-13 08:35 | disposition home or self-care (01) ==
LOC: EMR 05:09
DX: R59.0 Localized enlarged lymph nodes (principal); I10 Essential (primary) hypertension; J45.909 Unspecified asthma, uncomplicated; F41.9 Anxiety disorder, unspecified; R20.0 Anesthesia of skin; R29.810 Facial weakness
CPT/HCPCS: 36415; 70450; 71045; 80053; 81003; 81025; 82550; 82553; 84484; 85025; 93005; 99284

== ENCOUNTER 2017-10-14 17:55 | Emergency (ER) | payer OTHER ==
[~2017-10-14] VITALS: Ht 167.6 cm; Wt 122.5 kg
[2017-10-14] MEDS ORDERED: Ketorolac 60mg Inj IM ONE (18:15)
[2017-10-14] MEDS ORDERED: Ipratropium 0.02% Inh Soln 2.5ml UD HHN ONE (18:15)
[2017-10-14] MEDS ORDERED: Tylenol #3 tab (300mg/30mg) ORAL ONE (18:15)
[2017-10-14] MEDS ORDERED: Albuterol ud Inhalation HHN ONE (18:15)
[2017-10-14 18:16] VITALS: BP 160/103
--- NOTE | 2017-10-14 18:18 | Emergency Room Report ---
History of Present Illness General Chief Complaint: Dyspnea/Respdistress Source: Patient, Medical Record Present Illness HPI Patient presents with complaints of cough and congestion This is been ongoing for the past 3 days She now has developed a headache in the forehead describes as a migraine Denies any vomiting or diarrhea Denies any fevers or chills Denies any neck pain or photophobia patient also complains of a sore throat Allergies: Coded Allergies: No Known Allergies (Unverified , 03/08/13) Patient History Past Medical History: see triage record Pertinent Family History: none Last Menstrual Period: 09/02/17 Reviewed Nursing Documentation: PMH: Agreed; PSxH: Agreed Nursing Documentation-PMH Past Medical History: No History, Except For Hx Hypertension: Yes Hx Asthma: Yes Hx Cancer: No Hx Gastrointestinal Problems: No Hx Neurological Problems: No Review of Systems All Other Systems: negative except mentioned in HPI Physical Exam Vital Signs Date Time Temp Pulse Resp B/P (MAP) Pulse Ox O2 Delivery O2 Flow Rate FiO2 10/14/17 18:00 98.4 81 18 147/93 95 Room Air 98.4 Sp02 EP Interpretation: reviewed, normal General Appearance: well appearing, no apparent distress Head: normocephalic, atraumatic Eyes: bilateral eye PERRL, bilateral eye EOMI ENT: hearing grossly normal, TMs + canals normal, uvula midline, pharyngeal erythema Neck: full range of motion, supple, no meningismus, no bony tend Respiratory: no rhonchi, no respiratory distress, no retraction, no accessory muscle use, wheezing - Very fine wheezing in both lower lobes Cardiovascular #1: normal peripheral pulses, regular rate, rhythm, no edema, no gallop, no JVD, no murmur Gastrointestinal: normal bowel sounds, non tender, soft, no mass, no organomegaly, non-distended, no guarding, no hernia, no pulsatile mass, no rebound Genitourinary: no CVA tenderness Musculoskeletal: normal inspection Neurologic: oriented x3, responsive, 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, motor strength/ tone normal, sensory intact Psychiatric: mood/affect normal Skin: normal color, no rash, warm/dry, palpation normal Lymphatic: normal inspection, no adenopathy Medical Decision Making Diagnostic Impression: Primary Impression: Reactive airway disease Additional Impression: Pharyngitis ER Course Given the patient's complaints and presentation breathing treatment was obtained X-ray imaging does not show any acute pathology patient continues to show some signs of cardiomegaly She is encouraged to follow-up outpatient As the x-ray showed similar findings previously Feels significantly improved given the Pharyngeal erythema and the discomfort placed on antibiotics for that and requires close outpatient follow-up Chest X-Ray Diagnostic Results Chest X-Ray Diagnostic Results : Chest X-Ray Ordered: Yes # of Views/Limited/Complete: 1 View Indication: Shortness of Breath Interpretation: no consolidation, no effusion, no pneumothorax, no acute cardiopulmonary disease - Cardiomegaly Impression: No acute disease - Cardiomegaly Electronically Signed by: Ashley Ochoa DO Last Vital Signs Date Time Temp Pulse Resp B/P (MAP) Pulse Ox O2 Delivery O2 Flow Rate FiO2 10/14/17 18:00 98.4 81 18 147/93 95 Room Air 98.4 Status: improved Disposition: HOME, SELF-CARE Condition: Improved Scripts Albuterol Sulfate* (ALBUTEROL SULFATE MDI*) 8.5 Gm Hfa.aer.ad 2 PUFF INH Q6H, #1 EA 0 Refills Prov: Ashley Ochoa DO 10/14/17 Guaifenesin/Dextromethorphan (Robitussin Httrm-Ouoke-Hsgb Dm) 1 Each Capsule 1 EACH PO QHS for 7 Days, CAP Prov: Ashley Ochoa DO 10/14/17 Amoxicillin/Potassium Clav 875-125* (AUGMENTIN 875-125 TABLET*) 1 Each Tablet 1 TAB ORAL TWICE A DAY, #14 TAB Prov: Ashley Ochoa DO 10/14/17 Additional Instructions: Patient is provided with the discharge instructions notified to follow up with primary doctor in the next 2-3 days otherwise return to the er with any worsening symptoms. Please note that this report is being documented using [employer] technology. This can lead to erroneous entry secondary to incorrect interpretation by the dictating instrument. Ashley Ochoa DO Oct 14, 2017 18:18
[2017-10-14] MEDS ORDERED: Promethazine/Codeine 5ml UD ORAL ONE (19:00)
[2017-10-14] MEDS ORDERED: AUGMENTIN 875-1 EAC1 ORAL (19:22)
[2017-10-14] MEDS ORDERED: ALBUTEROL SULF8.5 GM INH (19:22)
[2017-10-14] MEDS ORDERED: ROBITUSSIN COU1 EACH PO (19:22)
[2017-10-14 20:45] VITALS: BP 130/70
--- NOTE | 2017-10-15 09:05 | Diagnostic Imaging Report ---
Indication: Shortness of breath Technique: One view of the chest Comparison: 08/13/2017 Findings: The heart is enlarged. The lungs and pleural spaces are clear. No significant interim change Impression: No acute process Cardiomegaly
== END 2017-10-14 20:35 | disposition home or self-care (01) ==
LOC: EMR 18:30
DX: J45.909 Unspecified asthma, uncomplicated (principal); J02.9 Acute pharyngitis, unspecified; I10 Essential (primary) hypertension
CPT/HCPCS: 71045; 94640; 94664; 96372; 99284

== ENCOUNTER 2018-04-03 17:17 | Emergency (ER) | payer OTHER ==
[~2018-04-03] VITALS: Ht 172.7 cm; Wt 113.4 kg
[~2018-04-03 17:17] MED LIST changes: +AUGMENTIN 875-1 EAC1 ORAL; +ROBITUSSIN COU1 EACH PO
[2018-04-03 17:35] VITALS: BP 161/95
--- NOTE | 2018-04-03 17:36 | Emergency Room Report ---
History of Present Illness General Chief Complaint: Chest Pain Source: Patient, Medical Record Present Illness HPI Patient is a 37 or female presented after increased headache with associated chest pain. Patient reports having prior history of valvular heart disease and had been taking losartan. He denies any constant pain. Patient was reportedly having increased headache. She denies any fever. She denies any vomiting. She reports having prior similar symptoms in the past. Patient prior history of migraine headaches and was followed by neurology. Allergies: Coded Allergies: No Known Allergies (Unverified , 03/08/13) Patient History Past Medical History: see triage record Last Menstrual Period: 03/12/18 Reviewed Nursing Documentation: PMH: Agreed; PSxH: Agreed Nursing Documentation-PMH Past Medical History: No History, Except For Hx Cardiac Problems: No - lupus Hx Hypertension: Yes Hx Pacemaker: No - migraines Hx Asthma: Yes Hx Cancer: No Hx Gastrointestinal Problems: No Hx Neurological Problems: No Review of Systems All Other Systems: negative except mentioned in HPI Physical Exam Vital Signs Date Time Temp Pulse Resp B/P (MAP) Pulse Ox O2 Delivery O2 Flow Rate FiO2 04/03/18 17:25 98.1 64 18 171/110 98 Room Air Sp02 EP Interpretation: reviewed, normal General Appearance: normal inspection, well appearing, no apparent distress, alert, GCS 15 Head: atraumatic ENT: normal ENT inspection, hearing grossly normal, normal voice Neck: normal inspection, full range of motion, supple, no bony tend Respiratory: normal inspection, lungs clear, normal breath sounds, no respiratory distress, no retraction, no wheezing Cardiovascular #1: regular rate, rhythm, no edema Gastrointestinal: normal inspection, normal bowel sounds, non tender, soft, no guarding, no hernia Genitourinary: no CVA tenderness Musculoskeletal: normal inspection, back normal, normal range of motion Neurologic: normal inspection, alert, oriented x3, responsive, 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 Because of complexity of patient's case laboratory testing and imaging studies were ordered.The CT the head read by radiology showed no evidence of acute intracranial hemorrhage or mass effect. Patient was given IV fluids she was given the Benadryl and Reglan with improvement in her headache. Patient is advised follow-up with her neurologist. She is given prescription for Fioricet Labs Test 04/03/18 17:52 04/03/18 18:00 White Blood Count 8.9 K/UL (4.8-10.8) Red Blood Count 4.52 M/UL (4.20-5.40) Hemoglobin 13.5 G/DL (12.0-16.0) Hematocrit 41.1 % (37.0-47.0) Mean Corpuscular Volume 91 FL (80-99) Mean Corpuscular Hemoglobin 29.9 PG (27.0-31.0) Mean Corpuscular Hemoglobin Concent 32.8 G/DL (32.0-36.0) Red Cell Distribution Width 11.5 % (11.6-14.8) Platelet Count 306 K/UL (150-450) Mean Platelet Volume 7.0 FL (6.5-10.1) Neutrophils (%) (Auto) 62.4 % (45.0-75.0) Lymphocytes (%) (Auto) 26.6 % (20.0-45.0) Monocytes (%) (Auto) 7.8 % (1.0-10.0) Eosinophils (%) (Auto) 2.2 % (0.0-3.0) Basophils (%) (Auto) 1.1 % (0.0-2.0) Prothrombin Time 10.5 SEC (9.30-11.50) Prothromb Time International Ratio 1.0 (0.9-1.1) Activated Partial Thromboplast Time 28 SEC (23-33) D-Dimer 0.25 mg/L FEU (0.00-0.49) Sodium Level 138 MMOL/L (136-145) Potassium Level 4.2 MMOL/L (3.5-5.1) Chloride Level 103 MMOL/L (98-107) Carbon Dioxide Level 30 MMOL/L (21-32) Anion Gap 5 mmol/L (5-15) Blood Urea Nitrogen 14 mg/dL (7-18) Creatinine 0.9 MG/DL (0.55-1.30) Estimat Glomerular Filtration Rate > 60 mL/min (>60) Glucose Level 99 MG/DL (74-106) Calcium Level 8.3 MG/DL (8.5-10.1) Total Bilirubin 0.3 MG/DL (0.2-1.0) Aspartate Amino Transf (AST/SGOT) 17 U/L (15-37) Alanine Aminotransferase (ALT/SGPT) 19 U/L (12-78) Alkaline Phosphatase 73 U/L (46-116) Total Protein 8.0 G/DL (6.4-8.2) Albumin 3.4 G/DL (3.4-5.0) Globulin 4.6 g/dL Albumin/Globulin Ratio 0.7 (1.0-2.7) Urine Color Pale yellow Urine Appearance Slightly cloudy Urine pH 8 (4.5-8.0) Urine Specific [place] 1.010 (1.005-1.035) Urine Protein Negative (NEGATIVE) Urine Glucose (UA) Negative (NEGATIVE) Urine Ketones Negative (NEGATIVE) Urine Blood 3+ (NEGATIVE) Urine Nitrite Negative (NEGATIVE) Urine Bilirubin Negative (NEGATIVE) Urine Urobilinogen Normal MG/DL (0.0-1.0) Urine Leukocyte Esterase Negative (NEGATIVE) Urine RBC 2-4 /HPF (0 - 2) Urine WBC 0-2 /HPF (0 - 2) Urine Squamous Epithelial Cells Many /LPF (NONE/OCC) Urine Bacteria Moderate /HPF (NONE) Urine HCG, Qualitative Negative (NEGATIVE) Urine Opiates Screen Negative (NEGATIVE) Urine Barbiturates Screen Negative (NEGATIVE) Phencyclidine (PCP) Screen Negative (NEGATIVE) Urine Amphetamines Screen Negative (NEGATIVE) Urine Benzodiazepines Screen Negative (NEGATIVE) Urine Cocaine Screen Negative (NEGATIVE) Urine Marijuana (THC) Screen Negative (NEGATIVE) Last Vital Signs Date Time Temp Pulse Resp B/P (MAP) Pulse Ox O2 Delivery O2 Flow Rate FiO2 04/03/18 17:25 98.1 64 18 171/110 98 Room Air Status: improved Disposition: HOME, SELF-CARE Condition: Stable Scripts Acetamin/Butalbital/Caffeine* (FIORICET*) 1 Ea Tab 1 TAB ORAL Q6H, #15 TAB 0 Refills Prov: Castro Ennis MD 04/03/18 Castro Ennis MD Apr 03, 2018 17:36
[2018-04-03] MEDS ORDERED: Metoclopramide 10mg/2ml Inj IVP ONE (17:45)
[2018-04-03] MEDS ORDERED: DiphenhydrAMINE 50mg/ml Inj IVP ONE (17:45)
[2018-04-03 18:06] LABS: BASOPHILS % (AUTO) 1.1 % (0.0-2.0); EOSINOPHILS % (AUTO) 2.2 % (0.0-3.0); HEMATOCRIT 41.1 % (37.0-47.0); HEMOGLOBIN 13.5 G/DL (12.0-16.0); LYMPHOCYTES % (AUTO) 26.6 % (20.0-45.0); MEAN CORPUSCULAR VOLUME 91 FL (80-99); MONOCYTES % (AUTO) 7.8 % (1.0-10.0); NEUTROPHILS % (AUTO) 62.4 % (45.0-75.0); PLATELET COUNT 306 K/UL (150-450); RED BLOOD COUNT 4.52 M/UL (4.20-5.40); RED CELL DISTRIBUTION WIDTH 11.5 % (11.6-14.8); WHITE BLOOD COUNT 8.9 K/UL (4.8-10.8)
[2018-04-03 18:12] LABS: APPEARANCE,URINE SLIGHTLY CLOUDY; BILIRUBIN, URINE NEGATIVE (NEGATIVE); COLOR,URINE PALE YELLOW; GLUCOSE, URINE (UA) NEGATIVE (NEGATIVE); KETONES,URINE NEGATIVE (NEGATIVE); LEUKOCYTE ESTERASE ,URINE NEGATIVE (NEGATIVE); NITRITE,URINE NEGATIVE (NEGATIVE); PH,URINE 8 (4.5-8.0); PROTEIN,URINE NEGATIVE (NEGATIVE); UROBILINOGEN,URINE NORMAL MG/DL (0.0-1.0)
[2018-04-03 18:12] LABS: ANION GAP 5 mmol/L (5-15); BLOOD UREA NITROGEN 14 mg/dL (7-18); CALCIUM 8.3 MG/DL (8.5-10.1); CARBON DIOXIDE 30 MMOL/L (21-32); CHLORIDE 103 MMOL/L (98-107); CREATININE 0.9 MG/DL (0.55-1.30); POTASSIUM 4.2 MMOL/L (3.5-5.1); SODIUM 138 MMOL/L (136-145)
[2018-04-03 18:16] LABS: ALANINE AMINOTRANSFERASE 19 U/L (12-78); ALBUMIN 3.4 G/DL (3.4-5.0); ALBUMIN/GLOBULIN RATIO 0.7 (1.0-2.7); ALKALINE PHOSPHATASE 73 U/L (46-116); ASPARTATE AMINO TRANSFERASE 17 U/L (15-37); BILIRUBIN,TOTAL 0.3 MG/DL (0.2-1.0)
[2018-04-03 19:45] VITALS: BP 146/90
[2018-04-03] MEDS ORDERED: FIORICET1 EA ORAL (19:52)
[2018-04-03 20:17] VITALS: BP 146/90
--- NOTE | 2018-04-04 10:23 | Diagnostic Imaging Report ---
Indications: Headache Technique: Spiral acquisitions obtained through the brain. Angled axial and coronal 5 x 5 mm slices were reconstructed. Total dose length product 1333.52 mGycm. CTDI vol(s) 70.38 mGy. Dose reduction achieved using automated exposure control Comparison: 08/13/2017 Findings: There is an empty sella. No acute intercranial hemorrhage or edema, mass effect, nor midline shift. Normal handy-white differentiation. Normal-sized ventricles and extra-axial CSF spaces. Intact calvarium. Visualized orbits and sinuses are unremarkable. The mastoids are clear. The calvarium is intact. No significant interim change Impression: Negative This agrees with the preliminary interpretation provided overnight by [facility] teleradiology service. The CT scanner at [facility] is accredited by the [employer] and the scans are performed using protocols designed to limit radiation exposure to as low as reasonably achievable to attain images of sufficient resolution adequate for diagnostic evaluation.
--- NOTE | 2018-04-04 10:24 | Diagnostic Imaging Report ---
Indication: Shortness of breath Technique: One view of the chest Comparison: 10/14/2017 Findings: Heart is mildly enlarged. The lungs and pleural spaces are clear. There is no significant interim change Impression: Cardiac megaly No acute process
== END 2018-04-03 20:19 | disposition home or self-care (01) ==
LOC: EMR 18:07
DX: R51 Headache (principal); R07.9 Chest pain, unspecified; I10 Essential (primary) hypertension; J45.909 Unspecified asthma, uncomplicated; M32.9 Systemic lupus erythematosus, unspecified
CPT/HCPCS: 36415; 70450; 71045; 80053; 80307; 81001; 81025; 84484; 85025; 85379; 85610; 85730; 86710; 87086; 93005; 96374; 96375; 99284; J1200; J2765

== ENCOUNTER 2018-10-08 18:33 | Emergency (ER) | payer OTHER ==
[~2018-10-08] VITALS: Ht 167.6 cm; Wt 108.9 kg
[~2018-10-08 18:33] MED LIST changes: +FIORICET1 EA ORAL
[2018-10-08 19:01] VITALS: BP 171/88
--- NOTE | 2018-10-08 19:03 | NUR ---
ED Nurse Note: Patient presents to ER due to feeling numbness and tingling in BUE, feeling tired, pain in the right chest x 2 days; Patient did not take HTN med x 2 days as she ran out of med. Patient appears anxious. Patient awake, alert, orietned x 4. Regular, unlabored breathing noted.
--- NOTE | 2018-10-08 19:05 | NUR ---
ED Nurse Note: Report given to ALF [place]. Luis Alberto, EMT at bedside performing EKG.
--- NOTE | 2018-10-08 19:06 | NUR ---
ED Nurse Note: Received report from [facility]/ALF. Pt is A/O X4. VSS, will continue to monitor.
--- NOTE | 2018-10-08 19:34 | Diagnostic Imaging Report ---
EXAM: XR Chest, 1 View CLINICAL HISTORY: PAIN TECHNIQUE: Frontal view of the chest. COMPARISON: 04/03/18 FINDINGS: Lungs: Unremarkable. No consolidation. Pleural space: Unremarkable. No pneumothorax. Heart: Stable mild cardiomegaly. Mediastinum: Unremarkable. Bones/joints: Unremarkable. IMPRESSION: Stable mild cardiomegaly. Otherwise no acute cardiopulmonary process.
--- NOTE | 2018-10-08 19:35 | NUR ---
ED Nurse Note: Blood and urine sample collected and sent to Lab.
[2018-10-08 19:42] LABS: BASOPHILS % (AUTO) 2.2 % (0.0-2.0); EOSINOPHILS % (AUTO) 3.7 % (0.0-3.0); HEMATOCRIT 36.1 % (37.0-47.0); HEMOGLOBIN 12.1 G/DL (12.0-16.0); LYMPHOCYTES % (AUTO) 26.7 % (20.0-45.0); MEAN CORPUSCULAR VOLUME 91 FL (80-99); MONOCYTES % (AUTO) 6.6 % (1.0-10.0); NEUTROPHILS % (AUTO) 60.7 % (45.0-75.0); PLATELET COUNT 255 K/UL (150-450); RED BLOOD COUNT 3.98 M/UL (4.20-5.40); RED CELL DISTRIBUTION WIDTH 11.5 % (11.6-14.8); WHITE BLOOD COUNT 8.2 K/UL (4.8-10.8)
[2018-10-08 19:47] LABS: APPEARANCE,URINE SLIGHTLY CLOUDY; BILIRUBIN, URINE NEGATIVE (NEGATIVE); COLOR,URINE PALE YELLOW; GLUCOSE, URINE (UA) NEGATIVE (NEGATIVE); KETONES,URINE NEGATIVE (NEGATIVE); LEUKOCYTE ESTERASE ,URINE 1+ (NEGATIVE); NITRITE,URINE NEGATIVE (NEGATIVE); PH,URINE 8 (4.5-8.0); PROTEIN,URINE 1+ (NEGATIVE); UROBILINOGEN,URINE 1 MG/DL (0.0-1.0)
--- NOTE | 2018-10-08 19:59 | Emergency Room Report ---
History of Present Illness General Chief Complaint: General Complaint Source: Medical Record Present Illness HPI 38-year-old female with history of valve leakage, hypertension, anxiety, migraine headache here complaining of 2 days of numbness and tingling in bilateral arms and fingers as well as chest pain. Patient reports that she has been having a tingling sensation in both arms as well as chest tightness intermittently for the past 2 days and started having right-sided blurry vision and headache today. Patient has been compliant with taking her blood pressure medication and follow with her computer systems consultant. Denies syncope, nausea vomiting, abdominal pain, drug use and smoking. She reports that she just went to [employer] prior to coming here as she wanted to have a full meal before coming to the hospital in case she was about to be admitted. Denies increased anxiety, denies SI and HI. Denies shortness of breath, denies chest pain radiating to the left arm or jaw. Denies injury to the head or arms. Allergies: Coded Allergies: No Known Allergies (Unverified , 03/08/13) Patient History Past Medical History: see triage record Past Surgical History: unable to obtain Pertinent Family History: none Last Menstrual Period: 10/16/18 Now: No Immunizations: UTD Reviewed Nursing Documentation: PMH: Agreed; PSxH: Agreed Nursing Documentation-PMH Past Medical History: No History, Except For Hx Cardiac Problems: No - lupus Hx Hypertension: Yes Hx Pacemaker: No - migraines Hx Asthma: Yes Hx Cancer: No Hx Gastrointestinal Problems: No Hx Neurological Problems: No Review of Systems All Other Systems: negative except mentioned in HPI Physical Exam Vital Signs Date Time Temp Pulse Resp B/P (MAP) Pulse Ox O2 Delivery O2 Flow Rate FiO2 10/08/18 18:36 97.9 60 18 159/94 (115) 96 Room Air Sp02 EP Interpretation: reviewed, normal General Appearance: normal inspection, well appearing, no apparent distress, alert Head: normocephalic, atraumatic Eyes: bilateral eye normal inspection, bilateral eye PERRL ENT: normal ENT inspection, normal pharynx Neck: normal inspection, full range of motion, supple Respiratory: normal inspection, chest non-tender, no rhonchi, no wheezing Cardiovascular #1: normal inspection, regular rate, rhythm, no edema, no murmur , normal capillary refill Cardiovascular #2: 2+ radial (R), 2+ radial (L) Gastrointestinal: normal inspection, normal bowel sounds, soft, no mass Rectal: deferred Genitourinary: no CVA tenderness Musculoskeletal: normal inspection, back normal, digits/nails normal, gait/ station normal, normal range of motion, no calf tenderness Neurologic: normal inspection, alert, oriented x3, responsive, mononitrotoluene operator III-XII nml as tested, normal gait, speech normal, no Babinski, no pronator Psychiatric: normal inspection, judgement/insight normal, memory normal Reflexes: 2+ bicep (R), 2+ bicep (L), 2+ tricep (R), 2+ tricep (L), 2+ knee (R) , 2+ knee (L) Skin: normal inspection, normal color, no rash, warm/dry Lymphatic: normal inspection, no adenopathy Medical Decision Making PA Attestation All my diagnosis and treatment plans were reviewed ad discussed with my supervising physician Dr. Ennis Diagnostic Impression: Primary Impression: Anxiety Additional Impressions: Essential (primary) hypertension Cardiomegaly Peripheral neuropathy ER Course 38-year-old female with history of valve leakage, hypertension, anxiety, migraine headache here complaining of 2 days of numbness and tingling in bilateral arms and fingers as well as chest pain. Patient reports that she has been having a tingling sensation in both arms as well as chest tightness intermittently for the past 2 days and started having right-sided blurry vision and headache today. Patient has been compliant with taking her blood pressure medication and follow with her computer systems consultant. Denies syncope, nausea vomiting, abdominal pain, drug use and smoking. She reports that she just went to [employer] prior to coming here as she wanted to have a full meal before coming to the hospital in case she was about to be admitted. Denies increased anxiety, denies SI and HI. Denies shortness of breath, denies chest pain radiating to the left arm or jaw. Denies injury to the head or arms. Ddx considered but are not limited to: [place], Angina, COPD, GERD, cardiomegaly, CVA , TIA, hypertensive urgency, hypertensive emergency cardiomegaly, HTN, anxiety, bilateral arm numbness and tingling Vital signs: are WNL, pt. is afebrile H&PE are most consistent with cardiomegaly, HTN, anxiety, bilateral arm numbness and tingling ORDERS: EKG, Chest XR, cardiac labs(troponin, CBC, CMP, lipid, BNP) head CT no contrast, valsartan ED INTERVENTIONS: None required at this time. DISCHARGE: At this time pt. is stable for d/c to home. Will provide printed patient care instructions, and any necessary prescriptions. Care plan and follow up instructions have been discussed with the patient prior to discharge. Follow-up with a primary care provider for better management of high blood pressure, referral to vascular specialist, and also follow with your computer systems consultant regarding your cardiomegaly , EKG Diagnostic Results Rate: bradycardiac Rhythm: NSR ST Segments: no acute changes CT/MRI/US Diagnostic Results CT/MRI/US Diagnostic Results : Imaging Test Ordered: head CT no contrast Impression COMPARISON: Noncontrast head CT of April 03, 2018 FINDINGS: Brain: Unremarkable. No hemorrhage. No significant white matter disease. No edema. Ventricles: Unremarkable. No ventriculomegaly. Bones/joints: Unremarkable. No acute fracture. Soft tissues: Unremarkable. Sinuses: Scattered sinus mucosal thickening. Mastoid air cells: Unremarkable as visualized. No mastoid effusion. IMPRESSION: No acute intracranial pathology. Last Vital Signs Date Time Temp Pulse Resp B/P (MAP) Pulse Ox O2 Delivery O2 Flow Rate FiO2 10/08/18 19:01 61 16 171/88 99 Room Air 10/08/18 18:36 97.9 Disposition: HOME, SELF-CARE Condition: Stable Patient Instructions: Hypertension, Peripheral Neuropathy Additional Instructions: Follow-up with a primary care provider for further management of peripheral neuropathy, see vascular and computer systems consultant, take medication as directed reduce anxiety. Present this note to your primary care physician, CBC, CMP, UA, chest x-ray, EKG, troponin, normal limits Ari Jauregui Oct 08, 2018 19:59
[2018-10-08 20:08] LABS: ANION GAP 5 mmol/L (5-15); BLOOD UREA NITROGEN 12 mg/dL (7-18); CALCIUM 8.7 MG/DL (8.5-10.1); CARBON DIOXIDE 29 MMOL/L (21-32); CHLORIDE 106 MMOL/L (98-107); CREATININE 0.8 MG/DL (0.55-1.30); SODIUM 140 MMOL/L (136-145)
--- NOTE | 2018-10-08 20:08 | Diagnostic Imaging Report ---
EXAM: CT Head Without Intravenous Contrast CLINICAL HISTORY: PAIN TECHNIQUE: Axial computed tomography images of the head/brain without intravenous contrast. CTDI is 70.43 mGy and DLP is 1400.5 mGy-cm. One or more of the following dose reduction techniques were used: automated exposure control, adjustment of the mA and/or kV according to patient size, use of iterative reconstruction technique. COMPARISON: Noncontrast head CT of April 03, 2018 FINDINGS: Brain: Unremarkable. No hemorrhage. No significant white matter disease. No edema. Ventricles: Unremarkable. No ventriculomegaly. Bones/joints: Unremarkable. No acute fracture. Soft tissues: Unremarkable. Sinuses: Scattered sinus mucosal thickening. Mastoid air cells: Unremarkable as visualized. No mastoid effusion. IMPRESSION: No acute intracranial pathology.
[2018-10-08 20:22] LABS: ALANINE AMINOTRANSFERASE 26 U/L (12-78); ALBUMIN 3.5 G/DL (3.4-5.0); ALBUMIN/GLOBULIN RATIO 0.9 (1.0-2.7); ALKALINE PHOSPHATASE 65 U/L (46-116); ASPARTATE AMINO TRANSFERASE 30 U/L (15-37); BILIRUBIN,TOTAL 0.3 MG/DL (0.2-1.0)
[2018-10-08] MEDS ORDERED: DIOVAN160 MG ORAL (20:49)
[2018-10-08 21:05] VITALS: BP 163/82
--- NOTE | 2018-10-08 21:05 | NUR ---
ER DISCHARGE NOTE: Patient is cleared to be discharged per Ari Jauregui/CLAUDIA. Pt is aox4 on room air with stable vital signs. Pt was given dc and prescription instructions and was able to verbalize understanding. Pt's IV and ID band removed. pt is able to ambulate with steady gait and took all belongings.
== END 2018-10-08 21:05 | disposition home or self-care (01) ==
LOC: EMR 19:52
DX: F41.9 Anxiety disorder, unspecified (principal); I10 Essential (primary) hypertension; I51.7 Cardiomegaly; G62.9 Polyneuropathy, unspecified
CPT/HCPCS: 36415; 70450; 71045; 80053; 80307; 81001; 81025; 82553; 84484; 85025; 85610; 85730; 93005; 99284

== ENCOUNTER 2020-01-02 00:35 | Emergency (ER) | payer MEDICARE, OTHER ==
[~2020-01-02] VITALS: Ht 167.6 cm; Wt 122.5 kg
[~2020-01-02 00:35] MED LIST changes: +DIOVAN160 MG ORAL
[2020-01-02] MEDS ORDERED: HYDROCHLOROTH12.5 MG ORAL (00:47)
--- NOTE | 2020-01-02 00:59 | Emergency Room Report ---
History of Present Illness General Chief Complaint: Chest Pain Source: Patient Present Illness HPI This a 39-year-old female with history of high blood pressure. She also has a history of obesity. She presents with chief complaint of chest tightness. Onset for 2 days now. Is been constant. [place] heaviness in her chest. No fever chills but no nausea no vomiting. F[place] she cannot take a deep breath. Denies any cough or congestion. Nothing made it better. Nothing made it worse. Said it does not feel like anxiety. Allergies: Coded Allergies: No Known Allergies (Unverified , 03/08/13) COVID-19 Screening Contact w/high risk pt: No Experienced COVID-19 symptoms?: No COVID-19 Testing performed NERVE SPECIALIST: No Patient History Past Medical History: see triage record, old chart reviewed, HTN Past Surgical History: none Pertinent Family History: none Social History: Denies: smoking Last Menstrual Period: 01/04/20 Now: No Immunizations: other Reviewed Nursing Documentation: PMH: Agreed; PSxH: Agreed Nursing Documentation-PMH Past Medical History: No History, Except For Hx Cardiac Problems: No - lupus Hx Hypertension: Yes Hx Pacemaker: No - migraines Hx Asthma: Yes Hx Cancer: No Hx Gastrointestinal Problems: No Hx Neurological Problems: No Review of Systems Eye: Denies: eye pain, blurred vision ENT: Denies: ear pain, nose congestion, throat swelling Respiratory: Denies: cough, shortness of breath Cardiovascular: Denies: chest pain, palpitations Gastrointestinal: Denies: abdominal pain, diarrhea, nausea, vomiting Musculoskeletal: Denies: back pain, joint pain Skin: Denies: rash Neurological: Denies: headache, numbness Endocrine: Denies: increased thirst, increased urine Hematologic/Lymphatic: Denies: easy bruising All Other Systems: negative except mentioned in HPI Physical Exam Vital Signs Date Time Temp Pulse Resp B/P (MAP) Pulse Ox O2 Delivery O2 Flow Rate FiO2 01/02/20 00:42 97.7 97 16 171/108 (129) 99 Room Air Vitals with high blood pressure Sp02 EP Interpretation: reviewed, normal General Appearance: well appearing, no apparent distress, alert, obese Head: normocephalic, atraumatic Eyes: bilateral eye PERRL, bilateral eye EOMI ENT: hearing grossly normal, normal pharynx Neck: full range of motion, supple, no meningismus Respiratory: chest non-tender, lungs clear, normal breath sounds Cardiovascular #1: regular rate, rhythm, no murmur Gastrointestinal: normal bowel sounds, non tender, no mass, no organomegaly, no bruit, non-distended Musculoskeletal: back normal, normal range of motion, gait/station normal Psychiatric: mood/affect normal Medical Decision Making Diagnostic Impression: Primary Impression: Chest pain Qualified Codes: R07.9 - Chest pain, unspecified Additional Impression: Hypertension Qualified Codes: I10 - Essential (primary) hypertension ER Course Presents with atypical chest pain. No evidence of ACS, PE, dissection to name a few. Her pain been ongoing for couple days constantly. Troponin is negative. She has not taken her blood pressure today. Blood pressure was high initially and now down to systolic 140s. Will discharge home. EKG Diagnostic Results Rate: normal Rhythm: NSR ST Segments: no acute changes ASA given to the pt in ED: Yes Rhythm Strip Diag. Results EP Interpretation: yes Rate: 70 Rhythm: NSR, no PVC's, no ectopy Chest X-Ray Diagnostic Results Chest X-Ray Diagnostic Results : Chest X-Ray Ordered: Yes # of Views/Limited/Complete: 1 View Indication: Chest Pain EP Interpretation: Yes Interpretation: no consolidation, no effusion, no pneumothorax, no acute cardiopulmonary disease Impression: No acute disease Electronically Signed by: Iban Ross MD Last Vital Signs Date Time Temp Pulse Resp B/P (MAP) Pulse Ox O2 Delivery O2 Flow Rate FiO2 01/02/20 00:42 97.7 97 16 171/108 (129) 99 Room Air Status: improved Disposition: HOME, SELF-CARE Condition: Stable Patient Instructions: Nonspecific Chest Pain Additional Instructions: Take your blood pressure medication. Follow-up with your doctor in 7 days. If continue with symptoms, you may need a stress test on your heart. Return if symptoms worsen. Iban Ross MD Jan 02, 2020 00:59
[2020-01-02 01:00] VITALS: BP 142/85
[2020-01-02] MEDS ORDERED: Aspirin Baby 81mg ORAL ONE (01:00)
--- NOTE | 2020-01-02 01:00 | NUR ---
ED Nurse Note: Patient walked in from home d/t left chest "heaviness", denies pain but reports heaviness rated at 8/10. Patient aao x 4 and ambulatory. Patient states she feels "fuzzy" in her head as well. Patient changed into gown and placed on farm specialist. No acute distress noted during assessment, VSS. Left AC 20g IV established, blood drawn and urine collected, sent to lab.
[2020-01-02 01:12] LABS: APPEARANCE,URINE CLEAR; BILIRUBIN, URINE NEGATIVE (NEGATIVE); GLUCOSE, URINE (UA) NEGATIVE (NEGATIVE); KETONES,URINE NEGATIVE (NEGATIVE); LEUKOCYTE ESTERASE ,URINE NEGATIVE (NEGATIVE); NITRITE,URINE NEGATIVE (NEGATIVE); PH,URINE 5 (4.5-8.0); PROTEIN,URINE 1+ (NEGATIVE); UROBILINOGEN,URINE NORMAL MG/DL (0.0-1.0)
[2020-01-02 01:13] LABS: EOSINOPHILS % (AUTO) 1.9 % (0.0-3.0); HEMOGLOBIN 12.6 G/DL (12.0-16.0); LYMPHOCYTES % (AUTO) 28.9 % (20.0-45.0); MEAN CORPUSCULAR VOLUME 94 FL (80-99); MONOCYTES % (AUTO) 7.5 % (1.0-10.0); NEUTROPHILS % (AUTO) 60.8 % (45.0-75.0); PLATELET COUNT 260 K/UL (150-450); RED BLOOD COUNT 4.16 M/UL (4.20-5.40); WHITE BLOOD COUNT 10.6 K/UL (4.8-10.8)
--- NOTE | 2020-01-02 01:16 | NUR ---
ED Nurse Note: Xray at bedside
[2020-01-02 01:23] LABS: COLOR,URINE YELLOW
[2020-01-02 01:24] LABS: ANION GAP 7 mmol/L (5-15); BLOOD UREA NITROGEN 19 mg/dL (7-18); CALCIUM 8.2 MG/DL (8.5-10.1); CARBON DIOXIDE 27 MMOL/L (21-32); CHLORIDE 104 MMOL/L (98-107); CREATININE 1.1 MG/DL (0.55-1.30); POTASSIUM 4.1 MMOL/L (3.5-5.1); SODIUM 138 MMOL/L (136-145)
[2020-01-02 01:30] LABS: ALANINE AMINOTRANSFERASE 17 U/L (12-78); ALBUMIN 3.4 G/DL (3.4-5.0); ALBUMIN/GLOBULIN RATIO 0.8 (1.0-2.7); ALKALINE PHOSPHATASE 68 U/L (46-116); ASPARTATE AMINO TRANSFERASE 17 U/L (15-37); BILIRUBIN,TOTAL 0.1 MG/DL (0.2-1.0)
--- NOTE | 2020-01-02 02:30 | NUR ---
ER DISCHARGE NOTE: Patient is cleared to be discharged per ERMD, pt is aox4, on room air, with stable vital signs. pt was given dc and prescription instructions, pt was able to verbalize understanding, pt id band and iv site removed without complications. pt is able to ambulate with steady gait. pt took all belongings.
[2020-01-02 02:33] VITALS: BP 127/85
--- NOTE | 2020-01-02 15:30 | Diagnostic Imaging Report ---
Indication: Chest pain Technique: One view of the chest Comparison: 10/08/2018 Findings: The heart is enlarged. The lungs and pleural spaces are clear. There is no significant interim change Impression: Cardiomegaly. No acute process
== END 2020-01-02 02:34 | disposition home or self-care (01) ==
LOC: EMR 01:09
DX: R07.9 Chest pain, unspecified (principal); I10 Essential (primary) hypertension; E66.9 Obesity, unspecified
CPT/HCPCS: 36415; 71045; 80053; 81003; 84484; 85025; 85379; 93005; 99283